=== PATIENT | female | born 1985 | race Caucasian/White ===

== ENCOUNTER 2019-09-10 17:25 | Emergency (ER) | payer OTHER ==
[~2019-09-10] VITALS: Ht 157.5 cm; Wt 76.7 kg
[2019-09-10 17:52] VITALS: BP 131/87
[2019-09-10] MEDS ORDERED: NACL 0.9% 1,000 ML IV ONE (18:15)
[2019-09-10] MEDS ORDERED: ONDANSETRON 4 MG/2 ML VIAL IVP ONE (18:15)
--- NOTE | 2019-09-10 18:27 | NUR ---
33/F TO ED WITH C/O H/A AND BLURRING VISION X 1 DAY +SUBJECTIVE FEVER, +N/V, +ABDOMINAL PAIN ABD IS SOFT NON TENDER. NO DISTRESS NOTED.
[2019-09-10 18:38] LABS: BASOPHILS # (AUTO) 0.1 K/uL (0.00-0.22); BASOPHILS % (AUTO) 1.1 % (0.0-2.0); EOSINOPHILS # (AUTO) 0.1 K/uL (0-0.4); EOSINOPHILS % (AUTO) 1.6 % (0.0-4.0); HEMATOCRIT 44.6 % (36-48); HEMOGLOBIN 14.8 g/dL (12.0-16.0); LYMPHOCYTES # (AUTO) 1.2 K/uL (2.5-16.5); LYMPHOCYTES % (AUTO) 16.1 % (20.5-51.1); MEAN CORPUSCULAR HEMOGLOBIN 27 pg (27-31); MEAN CORPUSCULAR HGB CONC 33 g/dL (33-37); MEAN CORPUSCULAR VOLUME 81.5 fL (80-94); MONOCYTES # (AUTO) 0.4 K/uL (0.8-1.0); NEUTROPHILS # (AUTO) 5.6 K/uL (1.8-7.7); NEUTROPHILS % (AUTO) 76.2 % (42.2-75.2); PLATELET COUNT (AUTO) 255 K/uL (140-450); RED BLOOD CELL COUNT(AUTO) 5.48 MIL/uL (4.20-5.40); RED CELL DISTRIBUTION WIDTH 12.9 % (11.6-13.7); WHITE BLOOD COUNT (AUTO) 7.4 K/uL (4.8-10.8)
[2019-09-10 18:57] LABS: ALBUMIN 4.3 g/dL (3.4-5.0); ANION GAP 12.8 (8-16); CREATININE 0.7 mg/dL (0.6-1.3); POTASSIUM 3.8 mmol/L (3.5-5.1); TOTAL BILIRUBIN 0.3 mg/dL (0.0-1.0)
[2019-09-10] MEDS ORDERED: KETOROLAC 30 MG/ML VIAL IVP ONE (19:10)
[2019-09-10 19:22] VITALS: BP 131/87
--- NOTE | 2019-09-10 19:22 | NUR ---
Patient discharged with v/s stable. Written and verbal after care instructions given and explained. Patient alert, oriented and verbalized understanding of instructions. Ambulatory with steady gait. All questions addressed prior to discharge. ID band removed. Patient advised to follow up with PMD. Rx of IBUPROFEN, ZOFRAN given. Patient educated on indication of medication including possible reaction and side effects. Opportunity to ask questions provided and answered.
== END 2019-09-10 19:22 | disposition home or self-care (01) ==
LOC: MED 17:25
DX: K52.9 Noninfective gastroenteritis and colitis, unspecified (principal); Z98.890 Other specified postprocedural states
CPT/HCPCS: 36415; 80053; 81002; 81025; 85025; 96361; 96374; 96375; 99284; J1885; J2405; J7030

== ENCOUNTER 2022-09-15 09:02 | Emergency (ER) | payer OTHER ==
[~2022-09-15] VITALS: Ht 160 cm; Wt 81.6 kg
[2022-09-15 09:14] VITALS: BP 157/97
--- NOTE | 2022-09-15 09:35 | NUR ---
ASSUMED PATIENT CARE, NURSING ASSESSMENT COMPLETED.
--- NOTE | 2022-09-15 10:25 | NUR ---
MD AT BEDSIDE, MSE COMPLETED.
[2022-09-15] MEDS ORDERED: KETOROLAC 30 MG/ML VIAL IVP ONE (10:30)
[2022-09-15] MEDS ORDERED: METOCLOPRAMIDE 10 MG/2 ML INJ VIAL IVP ONE (10:30)
[2022-09-15 10:58] LABS: BASOPHILS % (AUTO) 0.6 % (0.0-2.0); EOSINOPHILS # (AUTO) 0.1 K/uL (0-0.4); EOSINOPHILS % (AUTO) 2.3 % (0.0-4.0); HEMATOCRIT 41.2 % (36-48); HEMOGLOBIN 13.7 g/dL (12.0-16.0); LYMPHOCYTES # (AUTO) 1.9 K/uL (2.5-16.5); LYMPHOCYTES % (AUTO) 30.1 % (20.5-51.1); MEAN CORPUSCULAR HEMOGLOBIN 27 pg (27-31); MEAN CORPUSCULAR HGB CONC 33 g/dL (33-37); MEAN CORPUSCULAR VOLUME 82.1 fL (80-94); MONOCYTES # (AUTO) 0.3 K/uL (0.8-1.0); MONOCYTES % (AUTO) 4.6 % (1.7-9.3); NEUTROPHILS # (AUTO) 3.9 K/uL (1.8-7.7); NEUTROPHILS % (AUTO) 62.4 % (42.2-75.2); PLATELET COUNT (AUTO) 297 K/uL (140-450); RED BLOOD CELL COUNT(AUTO) 5.02 MIL/uL (4.20-5.40); RED CELL DISTRIBUTION WIDTH 13.1 % (11.6-13.7); WHITE BLOOD COUNT (AUTO) 6.2 K/uL (4.8-10.8)
[2022-09-15 11:06] LABS: CARBON DIOXIDE 30.2 mmol/L (21-32); CREATININE 0.8 mg/dL (0.6-1.3); POTASSIUM 4.2 mmol/L (3.5-5.1)
--- NOTE | 2022-09-15 11:32 | NUR ---
TO CT VIA [facility].
--- NOTE | 2022-09-15 11:39 | NUR ---
BACK FROM CT.
[2022-09-15] MEDS ORDERED: METO-486 PO (14:06)
[2022-09-15] MEDS ORDERED: IBUP-2213 PO (14:06)
--- NOTE | 2022-09-15 14:20 | NUR ---
IV removed, catheter intact and site benign. Applied folded 4x4 gauze and tape to stop bleeding.
[2022-09-15 14:23] VITALS: BP 119/74
--- NOTE | 2022-09-15 14:23 | NUR ---
Patient discharged with v/s stable. Written and verbal after care instructions ABOUT MIGRAINE HEADACHE given and explained. Patient alert, oriented and verbalized understanding of instructions. Ambulatory with steady gait. All questions addressed prior to discharge. ID band removed. Patient advised to follow up with PMD. Rx of REGLAN AND IBUPROFEN given. Patient educated on indication of medication including possible reaction and side effects. Opportunity to ask questions provided and answered.
== END 2022-09-15 14:23 | disposition home or self-care (01) ==
LOC: MED 09:02
DX: G43.109 Migraine with aura, not intractable, without status migrainosus (principal); Z79.899 Other long term (current) drug therapy; Z90.49 Acquired absence of other specified parts of digestive tract; Z98.890 Other specified postprocedural states
CPT/HCPCS: 36415; 70496; 70498; 80048; 81025; 85025; 96374; 96375; 99285; J1885; J2765; Q9967